=== PATIENT | female | born 1955 | race Caucasian/White ===

== ENCOUNTER 2016-11-18 11:53 | Emergency (ER) | payer OTHER ==
[~2016-11-18] VITALS: Ht 167.6 cm; Wt 72.0 kg
[~2016-11-18 11:53] MED LIST: ZOCO40TA PO
[2016-11-18 11:57] VITALS: BP 125/79; PULSE 82; RESP 16; TEMP 97.9; O2SAT 97
[2016-11-18] MEDS ORDERED: SIMV40TA PO (13:16)
[2016-11-18] MEDS ORDERED: OMEP20TA PO (13:16)
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
[2016-11-18] MEDS ORDERED: IBUPROFEN 800 MG TAB PO ONE (14:00)
--- NOTE | 2016-11-18 14:02 | RADHPO ---
EXAM DATE/TIME: 11/18/2016 13:49 [facility] COMPARISON: No previous studies available for comparison. INDICATIONS : Fall. Left foot pain and swelling. MEDICAL HISTORY : None. SURGICAL HISTORY : None. ENCOUNTER: Initial ACUITY: 1 day PAIN SCORE: 6/10 LOCATION: Left proximal foot FINDINGS: Normal bone density. There are transverse fractures noted through the base of the second, third and f ourth metatarsals. There is also a fracture of the medial cuneiform, mildly displaced. Plantar and po sterior calcaneal spurs. CONCLUSION: Metatarsal and medial cuneiform fractures are identified. Armando Rangel MD on November 18, 2016 at 14:00 Board Certified Radiologist. This report was verified electronically.
[2016-11-18] MEDS ORDERED: IBUP800T23 PO (14:49)
[2016-11-18] MEDS ORDERED: HYDR-3533 PO (14:52)
[2016-11-18 15:22] VITALS: RESP 18
== END 2016-11-18 16:28 | disposition home or self-care (01) ==
LOC: PHED 11:53 → PHEFT 16:28
DX: S92.325A Nondisplaced fracture of second metatarsal bone, left foot, initial encounter for closed fracture (principal); S92.335A Nondisplaced fracture of third metatarsal bone, left foot, initial encounter for closed fracture; S92.345A Nondisplaced fracture of fourth metatarsal bone, left foot, initial encounter for closed fracture; X58.XXXA Exposure to other specified factors, initial encounter; Y93.9 Activity, unspecified; Y92.9 Unspecified place or not applicable
CPT/HCPCS: 29515; 73630; 99283; E0113